=== PATIENT | female | born 1995 | race Caucasian/White ===

== ENCOUNTER 2017-04-27 20:56 | Emergency (ER) | payer OTHER ==
[~2017-04-27] VITALS: Ht 170.1 cm; Wt 68.0 kg
[~2017-04-27 20:56] MED LIST: AMOXIL500 MG PO; ATARAX25 MG PO; BENADRYL25 M1 PO; CEPHALEXIN500 M1 PO; COMPAZINE5 M1 PO; ELIMITE 5%60 GM T; HEMOCYTE324 MG PO; IRON325 M1 PO; LEVOTHYROXIN0.025 M1 PO; MOTRIN600 MG PO; MOTRIN800 MG PO; NKHM; PEPCID20 MG PO; PNV PRENATAL P1 EACH PO; PREDNICOT20 MG PO; PREDNISONE20 MG PO; PRENATAL1 TA1 PO; PRENATAL1 TA3 PO; PYRIDIUM200 MG PO; SEPTRA DS 800 M1 TAB PO; ULTRAM50 MG PO; VENTOLIN H0.09 MG/AC INH; Zofran4 MG
[2017-04-27] MEDS ORDERED: Motrin,Rufen800 MG PO (22:31)
== END 2017-04-27 22:23 | disposition home or self-care (01) ==
LOC: ED 20:56
DX: S02.2XXA Fracture of nasal bones, initial encounter for closed fracture (principal); F17.200 Nicotine dependence, unspecified, uncomplicated; Z88.1 Allergy status to other antibiotic agents; Z88.2 Allergy status to sulfonamides; Z88.6 Allergy status to analgesic agent; Y04.0XXA Assault by unarmed brawl or fight, initial encounter; Y93.89 Activity, other specified; Y92.89 Other specified places as the place of occurrence of the external cause; Y99.8 Other external cause status

== ENCOUNTER 2017-08-19 12:04 | Emergency (ER) | payer OTHER ==
[~2017-08-19] VITALS: Ht 162.5 cm; Wt 61.2 kg
[~2017-08-19 12:04] MED LIST changes: +Motrin,Rufen800 MG PO
== END 2017-08-19 12:46 | disposition home or self-care (01) ==
LOC: ED 12:04
DX: R05 Cough (principal); J06.9 Acute upper respiratory infection, unspecified; Z88.2 Allergy status to sulfonamides; Z88.8 Allergy status to other drugs, medicaments and biological substances; Z88.1 Allergy status to other antibiotic agents; Z88.5 Allergy status to narcotic agent

== ENCOUNTER 2017-11-30 20:32 | Emergency (ER) | payer OTHER ==
[~2017-11-30] VITALS: Ht 162.5 cm; Wt 62.6 kg
[2017-11-30] MEDS ORDERED: AUGMENTIN 875875 MG PO (21:05)
== END 2017-11-30 21:16 | disposition home or self-care (01) ==
LOC: ED 20:32
DX: K02.9 Dental caries, unspecified (principal); Z88.2 Allergy status to sulfonamides; Z88.6 Allergy status to analgesic agent; Z88.8 Allergy status to other drugs, medicaments and biological substances; Z88.1 Allergy status to other antibiotic agents

== ENCOUNTER 2018-08-19 16:00 | Emergency (ER) | payer OTHER ==
[~2018-08-19] VITALS: Ht 162.5 cm; Wt 69.9 kg
[~2018-08-19 16:00] MED LIST changes: +AUGMENTIN 875875 MG PO
[2018-08-19 16:19] LABS: BILIRUBIN NEGATIVE (NEGATIVE); BLOOD TRACE-INTACT (NEGATIVE); CLARITY SL CLOUDY (CLEAR); COLOR YELLOW (YELLOW); GLUCOSE NEGATIVE (NEGATIVE); KETONE NEGATIVE (NEGATIVE); LEUKO ESTERASE NEGATIVE (NEGATIVE); NITRITE NEGATIVE (NEGATIVE); SPECIFIC GRAVITY >= 1.030 (1.005-1.030); UROBILINOGEN 0.2 E.U./dl (0.2-1.0)
[2018-08-19] MEDS ORDERED: FLAGYL500 MG PO (16:23)
[2018-08-19 16:44] LABS: BACTERIA 2+; EPITHELIAL CELLS 20-30; MUCOUS 1+
[2018-08-21 15:09] LABS: GONOCOCCUS BY NAA Negative (Negative)
== END 2018-08-19 16:56 | disposition home or self-care (01) ==
LOC: ED 16:00
PROVIDERS: Nurse Practitioner Family
DX: Z11.3 Encounter for screening for infections with a predominantly sexual mode of transmission (principal); F17.200 Nicotine dependence, unspecified, uncomplicated; Z88.2 Allergy status to sulfonamides; Z88.6 Allergy status to analgesic agent; Z88.8 Allergy status to other drugs, medicaments and biological substances; Z88.1 Allergy status to other antibiotic agents; Z79.899 Other long term (current) drug therapy; Z79.2 Long term (current) use of antibiotics